=== PATIENT | male | born 2000 | race African-American/Black ===

== ENCOUNTER 2020-11-29 20:51 | Emergency (ER) | payer OTHER, SELFPAY ==
[2020-11-29 20:58] VITALS: BP 109/61; PULSE 69; RESP 16; TEMP 36.8; O2SAT 95; BMI 19.8
[2020-11-29] MEDS: Lidocaine 4 % Cream KIT 1 APPL TOPICAL (22:38)
[2020-11-29] MEDS: Lidocaine HCl 1 % MPF 5 ML VIAL SUBCUT (22:38)
--- NOTE | 2020-11-29 23:04 | ED_ITS ---
HPI - Ear Problem General Chief complaint: Ear Problems Stated complaint: ear ache Time Seen by Provider: 11/29/20 21:32 Source: patient Mode of arrival: ambulatory History of Present Illness HPI Narrative: 20-year-old male presenting to the ED complaining of left ear lobe pain and swelling x a few days. Reports took earrings out 3 days ago and then swelling started. Denies trauma, injury, drainage from area, fever, chills, hearing loss MD Complaint: ear pain Related Data Previous Rx's Medication Instructions Recorded cephalexin 500 mg capsule 500 mg PO QID 7 Days #28 cap 11/29/20 doxycycline hyclate 100 mg tablet 100 mg PO BID 7 Days #14 tab 11/29/20 Allergies Allergy/AdvReac Type Severity Reaction Status Date / Time No Known Allergies Allergy Unverified 10/28/19 17:35 [No Known Allergies*] Review of Systems Review of Systems: Constitutional: No Fever, No Chills ENT/Mouth: + Ear Pain, No Nasal Congestion, No Sinus Pain, No Hoarseness, No sore throat, No Rhinorrhea, No Swallowing Difficulty Cardiovascular: No Chest Pain, No SOB Respiratory: No Cough Gastrointestinal: No Nausea, No Vomiting, No Abdominal pain Musculoskeletal: No joint pain, No Myalgias Skin: + Skin Lesions, No rash Neuro: No Weakness, No Numbness, No Paresthesias Yes all other systems are reviewed and are negative [facility] Past Medical History Attestation statement: The following information was validated with the patient. Medical History (Updated 11/29/20 @ 23:05 by ROCHELLE Lopez) No known health problems Social History Social History Advance Directives: No Advance Directives Information Provided: No Physical Exam Vital Signs: Vital Signs: Last Vital Signs Temp 98.3 F 11/29/20 20:58 Pulse 69 11/29/20 20:58 Resp 16 11/29/20 20:58 BP 109/61 11/29/20 20:58 Pulse Ox 95 11/29/20 20:58 Body Mass Index 19.8 Const: General: cooperative, healthy appearing, no acute distress and well developed Orientation/consciousness: patient oriented x3 Limitations: no limitations HENMT: Other: Left ear lobe with notable swelling and erythema, tender to palpation, posterior ascpect with noted fluctuance and slight induration Head: Yes normal to inspection Ears: hearing grossly normal bilaterally, mastoids normal and unable to visualize TM bilaterally (Secondary to cerumen impaction) General nose exam: Normal external nose present Face and sinus: Yes normal facial exam Mouth: Normal oral and palatal mucosa present Throat: Yes posterior oropharynx normal Eyes: General: appearance normal, both eyes and all related structures EOM: EOMs intact bilaterally Neck: Neck: Yes normal visual inspection, Yes no lymphadenopathy and Yes no meningeal signs Resp: Effort & Inspection: normal respiratory effort and no respiratory distress Cardio: Rate: regular rate Heart sounds: S1 normal heart sound present and S2 normal heart sound present Skin: Rashes: no rashes Wounds: no wounds Neuro: General: patient oriented x3 and no meningeal signs Gait exam (Neuro): Normal gait present Extrem: General: Yes normal to inspection Procedures Abscess I/D Site: other (Left earlobe) Side (if applicable): left Local Anesthetic: lidocaine 1% Amount of anesthesia used (mL): 3 Technique: incised with blade Amount of fluid expressed (mL): 15 Sent for culture/gram staining?: No Irrigation: No Ear Wax Removal Both Ears: Cerumenolytic Used: Cerumenex and 5-10% Sodium Bicarb solution Results: Re-examined: cerumen removed completely (On the right) and some cerumen remains (On the left) TM Examination: TM(s) intact, normal appearance (on the right) and other (Left TM not visible secondary to continued impaction) Ear Canal Exam: bleeding Noted (L canal) Patient Tolerated Procedure: well Complications: no problems Technique: ear canal irrigated and ear canal curetted MDM - Ear MDM Narrative Medical decision making narrative: 20-year-old male presenting to the ED complaining of left ear lobe pain and swelling x a few days. On exam VS, NAD/nontoxic-appearing, left earlobe with noted abscess, and bilateral cerumen impaction. Cerumen successfully disimpacted from right ear lobe, partially successful to left, still unable to visualize TM. Abscess I&D with copious amounts of pus drainage, and cyst pocket expressed Plan to DC home with doxy/Keflex and discussed peroxide/saline soaks at home to soften ear wax Medical Records Attestation: I reviewed the patient's medical records. Lab Data Attestation: I reviewed the patient's lab results. Discharge Plan Discharge Clinical Impression: Abscess of left earlobe, Bilateral impacted cerumen Patient Disposition: Home, Self-Care Instructions: Abscess (ED), Abscess Follow-up (ED) Additional Instructions: The abscess on your ear lobe was drain today in the ED, doxycycline and Keflex for antibiotics, please take as prescribed Your ears were also mostly disimpacted today in the ED It is important for you to practice 1-1 ratio of saline and peroxide at home to help soften the earwax in your ears Please follow-up with her primary care doctor, and ENT as needed If your symptoms persist, recur, he develops fever, continued drainage from the ear, hearing loss please return to the ED Prescriptions: New cephalexin 500 mg capsule 500 mg PO QID 7 Days Qty: 28 RF: 0 doxycycline hyclate 100 mg tablet 100 mg PO BID 7 Days Qty: 14 RF: 0 Referrals: Physician,None [Primary Care Provider] - 2 days
--- NOTE | 2020-11-29 23:25 | PC.NURSE ---
PT BILATERAL EARS CLEANED AND FLUSHED OUT AT BEDSIDE BY ROCHELLE BRANHAM. PT LEFT EAR LOBE ABSCESS CLEANED AND DRAIN COPPIOUS AMOUNTS OF PUSS REMOVED DSD APPLIED.
== END 2020-11-29 23:29 | disposition home or self-care (01) ==
PROVIDERS: Emergency Provider Internal Medicine
DX: H60.02 Abscess of left external ear (principal); H61.23 Impacted cerumen, bilateral
CPT/HCPCS: 10060; 69210; 99283; 99284

== ENCOUNTER 2022-05-04 07:54 | Emergency (ER) | payer OTHER, SELFPAY ==
--- NOTE | ~2022-05-04 | XR_ITS ---
EXAMINATION: XR HAND, RIGHT CLINICAL INFORMATION: Injury, pain COMPARISON: None available. TECHNIQUE: PA, lateral, and oblique views of the right hand. FINDINGS: The bones and soft tissues are normal. No fracture. Alignment is anatomic. Joint spaces are maintained. No erosions or soft tissue calcifications. There is deformity of the fifth distal metacarpal from old injury. XR/XR hand RT 2V IMPRESSION: 1. No acute fracture or dislocation. 2. Deformity distal fifth metacarpal from old injury.
[2022-05-04 08:22] VITALS: BP 113/74; PULSE 62; RESP 16; TEMP 36.5; O2SAT 98; BMI 19.8
--- NOTE | 2022-05-04 08:35 | ED_ITS ---
HPI - Extremity Problem General Chief complaint: Extremity Injury, Upper Stated complaint: hand inj Time Seen by Provider: 05/04/22 08:32 Source: patient and family Mode of arrival: ambulatory Limitations: no limitations History of Present Illness HPI Narrative: This is a 22-year-old male who is right-hand dominant who has no known medical problems he is up-to-date with immunizations who presents with complaints of right hand injury which occurred last night after punching a wall. Patient reports laceration of the hand. He denies any associated weakness, numbness or tingling of the extremity. Related Data Previous Rx's Medication Instructions Recorded cephalexin 500 mg capsule 500 mg PO QID 7 days #28 caps 11/29/20 doxycycline hyclate 100 mg tablet 100 mg PO BID 7 days #14 tabs 11/29/20 amoxicillin 875 mg-potassium 1 tab PO BID #14 tabs 05/04/22 clavulanate 125 mg tablet Allergies Allergy/AdvReac Type Severity Reaction Status Date / Time No Known Allergies Allergy Unverified 10/28/19 17:35 [No Known Allergies*] Review of Systems Review of Systems: Yes all other systems are reviewed and are negative Constitutional: Constitutional: Reports no additional constitutional complaints, Denies body ache(s), Denies chills, Denies fever(s), Denies headache(s) and Denies weakness Eyes: Eyes: Reports no additional eye complaints and Denies change in vision ENT: Reports system reviewed and no additional complaints, except as documented, Denies dizziness, Denies headache(s), Denies nasal congestion, Denies nasal discharge and Denies neck pain Cardiovascular: Cardiovascular: Reports no additional cardiovascular complain ts, Denies chest pain, Denies leg edema and Denies dyspnea Respiratory: Respiratory: Reports no additional respiratory complaints, Denies cough and Denies dyspnea Gastrointestinal: Gastrointestinal: Reports no additional gastrointestinal complaints, Denies abdominal pain, Denies diarrhea, Denies nausea and Denies vomiting Genitourinary: Genitourinary: Denies urinary incontinence Musculoskeletal: Musculoskeletal: Reports no additional musculoskeletal complaints, Denies back pain, Reports arthralgias, Reports joint swelling, Denies neck pain, Denies numbness and Denies tingling Integumentary/Breasts: Skin/Breast: Reports system reviewed and no additional complaints, except as docu, Denies rash and Reports wounds Neurologic: Reports system reviewed and no additional complaints, except as documented, Denies Abnormal speech present, Denies dizziness, Denies headache(s), Denies numbness, Denies tingling and Denies weakness PMFSH Past Medical History Attestation statement: The following information was validated with the patient. Source: old records reviewed and nursing notes reviewed Medical History No known health problems Social History Social History Alcohol intake: current Smoked in Last 30 Days: Yes Use of substances other than those prescribed or required for medical reasons: No Advance Directives: No Physical Exam Vital Signs: Vital Signs: Last Vital Signs Temp 97.7 F 05/04/22 08:22 Pulse 62 05/04/22 08:22 Resp 16 05/04/22 08:22 BP 113/74 05/04/22 08:22 Pulse Ox 98 05/04/22 08:22 O2 Del Method Room Air 05/04/22 08:22 BMI result Body Mass Index 19.8 Const: General: cooperative, healthy appearing, comfortable and no acute distress Orientation/consciousness: patient oriented x3 Limitations: no limitations HEENT: Head: Yes normal to inspection Ears: hearing grossly normal bilaterally General nose exam: Normal external nose present Face and sinus: Yes normal facial exam Mouth: Normal oral and palatal mucosa present Throat: Yes posterior oropharynx normal Eyes: General: appearance normal, both eyes and all related structures Pupils: Equal, round and reactive pupils present Neck: Neck: Yes normal visual inspection Chest: Chest palpation & inspection: normal inspection of the chest Resp: Effort & Inspection: normal respiratory effort Auscultation: clear to auscultation bilaterally Cardio: Rate: regular rate Rhythm: regular rhythm Peripheral pulses: Peripheral pulses 2+ throughout GI: Inspection: Yes normal to inspection Palpation (GI): Soft to palpation and nontender Auscultation: normal bowel sounds Back/Spine/Pelvis: Thoracic/Lumbar Spine: thoracic and lumbar spine normal to inspection Skin: General skin exam: no rashes or lesions noted Neuro: General: patient oriented x3, no focal motor deficits and normal sensation to monofilament Cranial nerves: Yes Equal, round and reactive pupils present Cognition (Neuro): normal cognition Speech: No Abnormal speech present Gait exam (Neuro): Normal gait present Motor exam (neuro): 5/5 motor strength present throughout Extrem: General: Yes normal to inspection Hand/finger images: 1. Laceration present, tenderness on exam Patient is able to flex and extend the hand with no difficulty. He is able to move the 4th digit with both flexion and extension with no difficulty. Sensation is intact distally. Course Course Course Narrative: X-ray shows no fracture in the hand. See procedure note for wound repair. After the wound was cleansed there was some slight erythema/swelling around the site. Patient denies fight bite and is adamant he punched a object and not a person. Will give pptx antibiotics. Reviewed worrisome signs/symptoms with patient and when to seek additional care. Comfortable with discharge home. Medical Decision Making Medical Decision Making MDM Narrative: This is a 22-year-old male who is right-hand dominant who presents with injury and laceration to the right hand after punching a wall last night. Laceration on exam Will obtain x-ray Differential Diagnosis Differential Diagnoses: The differential diagnosis associated with the presentation includes Contusion, fracture, laceration Less likely tendon or vascular injury Independent Interpretation I performed an independent interpretation of an: Plain X-Ray Interpretation: I independently reviewed the x-ray and agree with radiologist's report Radiology Impression Discussion of test interpretation with radiology: I have reviewed the radiologist's reading. Procedures Laceration Laceration 1: Site: hand Side (If applicable): right Size (cm): 2 Description: linear Depth: simple, single layer Local Anesthetic: lidocaine 1% Amount of anesthesia used (mL): 2 Pre-repair: wound explored Skin layer closed with: vicryl Size (cm): 5-0 Number of sutures: 3 Technique: simple, interrupted Discharge Plan Discharge Clinical Impression: Contusion of hand, right, Laceration of hand Patient Disposition: Home, Self-Care Instructions: Laceration (DC), Contusion in Adults (ED) Additional Instructions: Sutures out in 7-10 days You may wash the area with soap and water daily. No soaking in water. Take Motrin or Tylenol as needed. Return for any increasing redness, swelling, fever, drainage from the wound Prescriptions: New amoxicillin-pot clavulanate 875-125 mg tablet 1 tab PO BID Qty: 14 0RF No Action cephalexin 500 mg capsule 500 mg PO QID 7 Days Qty: 28 0RF doxycycline hyclate 100 mg tablet 100 mg PO BID 7 Days Qty: 14 0RF Referrals: Physician,Unknown J [Primary Care Provider] -
[2022-05-04 10:58] VITALS: BP 113/79; PULSE 63; RESP 18; TEMP 36.7; O2SAT 96
== END 2022-05-04 11:01 | disposition home or self-care (01) ==
PROVIDERS: Emergency Provider Emergency Medicine
DX: S61.411A Laceration without foreign body of right hand, initial encounter (principal); S60.221A Contusion of right hand, initial encounter; W22.09XA Striking against other stationary object, initial encounter; Y93.89 Activity, other specified; Y92.019 Unspecified place in single-family (private) house as the place of occurrence of the external cause; Y99.9 Unspecified external cause status
CPT/HCPCS: 12001; 73120; 99284

== ENCOUNTER 2022-05-08 14:58 | Inpatient (IN) | payer OTHER, SELFPAY ==
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
[2022-05-08 15:06] VITALS: BP 121/83; PULSE 60; RESP 19; TEMP 37; O2SAT 100; BMI 19.8
[2022-05-08 15:30] LABS: MANUAL DIFF FLAG NO
[2022-05-08 15:32] LABS: Basophils Percent Auto 0.2 % (0-2); Eosinophils Absolute Auto 0.1 X10*3/uL (0.0-0.4); Eosinophils Percent Auto 0.5 % (0-4); Hematocrit 37.9 % (42.0-52.0); Imm Gran Abs Auto 0.03 X10*3/uL (0.00-0.03); Imm Gran Pct Auto 0.2 % (0.0-0.4); Lymphocytes Percent Auto 13.5 % (20-40); Mean Corpuscular HGB Conc 36.9 g/dl (31.0-36.0); Mean Corpuscular Hemoglobin 28.3 pg (27.0-33.0); Mean Corpuscular Volume 76.7 fL (80.0-98.0); Mean Platelet Volume 9.6 fL (9.4-12.4); Monocytes Absolute Auto 0.9 X10*3/uL (0.1-1.2); Monocytes Percent Auto 5.7 % (2-11); Neutrophils Percent Auto 79.9 % (45-73); Platelet Count 227 X10*3/uL (160-400); Red Blood Count 4.94 X10*6/uL (4.60-5.80)
[2022-05-08] MEDS: Ibuprofen 600 MG TABLET PO (15:37)
[2022-05-08 15:50] LABS: Lactic Acid 0.8 mmol/L (0.5-2.0)
[2022-05-08 15:53] LABS: Anion Gap 13 (12-20); Blood Urea Nitrogen 9 mg/dL (9-16); C Reactive Protein 1.65 mg/dL (< or = 0.50); Carbon Dioxide 24 mmol/L (22-29); Chloride 109 mmol/L (96-108); Creatinine Clr Calc Pharmacy 116.4; Estimated Glomerular Filt Rate > 60; Glucose Random 93 mg/dL (60-115); Potassium 3.9 mmol/L (3.3-5.1); Sodium 142 mmol/L (135-145)
[2022-05-08 16:46] LABS: Erythrocyte Sedimentation Rate 9 MM/HR (0-15)
[2022-05-08] MEDS: Acetaminophen 325 MG TABLET 975 MG PO (16:50)
[2022-05-08] MEDS: oxyCODONE HCl Immed Release 5 MG TABLET PO (16:50)
[2022-05-08 17:28] LABS: COVID-19 Test Negative (Negative); IDNOW Serial# 08D9AD1C
[2022-05-08] MEDS: Piperacillin Sodium/Tazobactam 3.375 GM in 0.9 % Sodium Chloride 50 ML IV (17:34)
--- NOTE | 2022-05-08 17:42 | PC.NURSE ---
20G iv placed in rigth AC, infusing zosyn as ordered- pt sts he is comfortable at this time, call flower within reach WCTM
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
--- NOTE | 2022-05-08 21:54 | MHC.CM.PN ---
CM met with admitted patient with bed assignment pending. A&Ox4. Lives with grandmother. Unemployed. No DME/services. PCP at [facility] in [place]. Cannot remember name of provider. No Covid vaccinations. HCP reviewed, completed and signed. Copies given. Uploaded into [facility]. Unable to upload to [facility] (IT problem with fax attach). HCP/mother Dulce Sung ([phone]). D/C plan: Home without services. Pt to arrange transport. CM to follow for any discharge needs.
--- NOTE | 2022-05-08 22:48 | PC.NURSE ---
Pt. sitting up in bed on his phone, no distress noted. Will continue to monitor.
[2022-05-09] MEDS: Piperacillin Sodium/Tazobactam 3.375 GM in 0.9 % Sodium Chloride 50 ML IV ×4 (00:21→18:36)
[2022-05-09] MEDS: 0.9 % Sodium Chloride Flush 3 ML SYRINGE IVFLUSH ×3 (00:22→16:20)
[2022-05-09 01:11] VITALS: BP 110/68; PULSE 61; RESP 16; TEMP 37.1; O2SAT 98
--- NOTE | 2022-05-09 01:12 | MHC.EDTECH ---
pt refused to change into hospital attire ,judie feng is aware .
--- NOTE | 2022-05-09 03:14 | PC.NURSE ---
Pt. asleep in bed, respirations even and unlabored. No distress noted. Will continue to monitor.
[2022-05-09 04:00] VITALS: BP 122/74; PULSE 72; RESP 16; TEMP 36.8; O2SAT 98
[2022-05-09 04:43] VITALS: BP 119/84; PULSE 74; RESP 16; TEMP 35.9; O2SAT 100
[2022-05-09 05:02] VITALS: BMI 19.3
[2022-05-09 06:30] LABS: Hematocrit 37.4 % (42.0-52.0); Hemoglobin 13.6 g/dl (14.0-18.0); Mean Corpuscular HGB Conc 36.4 g/dl (31.0-36.0); Mean Corpuscular Hemoglobin 27.8 pg (27.0-33.0); Mean Corpuscular Volume 76.5 fL (80.0-98.0); Mean Platelet Volume 9.8 fL (9.4-12.4); Platelet Count 223 X10*3/uL (160-400); Red Blood Count 4.89 X10*6/uL (4.60-5.80); White Blood Count 11.7 X10*3/uL (4.8-10.8)
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
[2022-05-09 08:02] VITALS: BP 123/64; PULSE 58; RESP 18; TEMP 36.6; O2SAT 98
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
[2022-05-09 15:30] VITALS: BP 128/71; PULSE 58; RESP 16; TEMP 37.3; O2SAT 98
[2022-05-09 19:42] VITALS: BP 134/80; PULSE 67; RESP 17; TEMP 36.6; O2SAT 99
[2022-05-09] MEDS: Acetaminophen 325 MG TABLET 650 MG PO (21:00)
[2022-05-10] MEDS: 0.9 % Sodium Chloride Flush 3 ML SYRINGE IVFLUSH (00:46)
[2022-05-10] MEDS: Piperacillin Sodium/Tazobactam 3.375 GM in 0.9 % Sodium Chloride 50 ML IV ×2 (00:46→05:51)
[2022-05-10 03:54] VITALS: BP 106/68; PULSE 65; RESP 18; TEMP 36.6; O2SAT 99
[2022-05-10 07:36] VITALS: BP 120/65; PULSE 53; RESP 17; TEMP 36.5; O2SAT 98
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
--- NOTE | 2022-05-10 09:55 | MHC.CM.PN ---
PT TO DC HOME TODAY WITH NO SERVICES FAMILY TO TRANSPORT
[2022-05-10] MEDS: metroNIDAZOLE 500 MG TABLET PO (10:11)
[2022-05-10] MEDS: levoFLOXacin 750 MG TABLET PO (10:11)
[2022-05-10 11:17] LABS: HIV AB/AG Nonreactive (Nonreactive); HIV Num 1 0.06 S/CO (0.00-0.99); ~HepC Num1 0.13 S/CO (0.00-0.79); ~Hepatitis C Antibody Nonreactive (Nonreactive)
== END 2022-05-10 10:39 | disposition home or self-care (01) | DRG 721 ==
LOC: HO.ED 18:28 → HO.EDOVER 19:05 → HO.S3 05-09 03:29
PROVIDERS: Internal Medicine; Nurse Practitioner Family; Physician Assistant; Admitting Provider Internal Medicine; Emergency Provider Emergency Medicine Emergency Medical Services; Visit Provider Internal Medicine
DX: T81.41XA Infection following a procedure, superficial incisional surgical site, initial encounter (principal); L03.113 Cellulitis of right upper limb; Y84.8 Other medical procedures as the cause of abnormal reaction of the patient, or of later complication, without mention of misadventure at the time of the procedure; Z20.822 Contact with and (suspected) exposure to COVID-19
CPT/HCPCS: 36415; 80048; 83605; 85025; 85027; 85652; 86140; 86803; 87040; 87070; 87077; 87147; 87185; 87205; 87389; 87635; 99221; 99285; J2543

== ENCOUNTER 2023-11-26 22:20 | Emergency (ER) | payer OTHER, SELFPAY ==
[2023-11-26 22:22] VITALS: BP 123/87; PULSE 58; RESP 19; TEMP 36.6; O2SAT 98; BMI 19.8
[2023-11-26 22:37] LABS: MANUAL DIFF FLAG NO
[2023-11-26 22:39] LABS: Hematocrit 43.3 % (42.0-52.0); Hemoglobin 15.9 g/dl (14.0-18.0); Imm Gran Pct Auto 0.3 % (0.0-0.4); Mean Corpuscular HGB Conc 36.7 g/dl (31.0-36.0); Mean Corpuscular Hemoglobin 28.8 pg (27.0-33.0); Mean Corpuscular Volume 78.3 fL (80.0-98.0); Mean Platelet Volume 9.6 fL (9.4-12.4); Neutrophils Percent Auto 69.6 % (45-73); Platelet Count 211 X10*3/uL (160-400); Red Blood Count 5.53 X10*6/uL (4.60-5.80); White Blood Count 12.7 X10*3/uL (4.8-10.8)
[2023-11-26 22:40] LABS: Basophils Percent Auto 0.3 % (0-2); Eosinophils Absolute Auto 0.1 X10*3/uL (0.0-0.4); Eosinophils Percent Auto 0.6 % (0-4); Imm Gran Abs Auto 0.04 X10*3/uL (0.00-0.03); Lymphocytes Percent Auto 23.4 % (20-40); Monocytes Absolute Auto 0.7 X10*3/uL (0.1-1.2); Monocytes Percent Auto 5.8 % (2-11); Neutrophils Absolute Auto 8.8 x10*3/uL (2.0-8.3)
[2023-11-26 22:49] LABS: Anion Gap 13 (12-20); Blood Urea Nitrogen 9 mg/dL (9-16); Calcium 9.5 mg/dL (8.4-10.2); Carbon Dioxide 26 mmol/L (22-29); Chloride 108 mmol/L (96-108); Creatinine Clr Calc Pharmacy 100.8; Estimated Glomerular Filt Rate > 60; Glucose Random 85 mg/dL (60-115); Potassium 4.2 mmol/L (3.3-5.1); Sodium 143 mmol/L (135-145)
== END 2023-11-27 02:34 | disposition left against medical advice (07) ==
PROVIDERS: Emergency Provider Emergency Medicine; PCP Internal Medicine
DX: R11.2 Nausea with vomiting, unspecified (principal)
CPT/HCPCS: 36415; 80048; 85025; 99281

== ENCOUNTER 2024-05-07 17:48 | Emergency (ER) | payer OTHER, SELFPAY ==
--- NOTE | ~2024-05-07 | XR_ITS ---
CLINICAL HISTORY: knee pain. fall. 8 view bilateral knee Comparison: None Findings: Bones intact. No dislocations. No significant loss of joint space, osteophytes, or erosions. No joint effusion. No radiopaque foreign body. IMPRESSION: 1. No acute findings. This document has been electronically signed by: Alexi Vital MD, PHD on 05/07/2024 19:36:21
--- NOTE | ~2024-05-07 | XR_ITS ---
CLINICAL HISTORY: shoulder pain 3 view right shoulder Comparison: None Findings: Bones intact. No dislocations. No significant arthritic change. No erosions. No radiopaque foreign body. IMPRESSION: 1. No acute findings This document has been electronically signed by: Alexi Vital MD, PHD on 05/07/2024 19:04:59
[2024-05-07 17:52] VITALS: BP 114/82; PULSE 66; O2SAT 98
[2024-05-07 17:58] VITALS: BP 118/76; PULSE 59; RESP 16; TEMP 36.9; O2SAT 99; BMI 19.0
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
[2024-05-07] MEDS: Ibuprofen 800 MG TABLET PO (18:50)
--- NOTE | 2024-05-07 18:58 | PC.NURSE ---
patient a&ox3, c/o 06/19 rt shoulder pain, pt medicated for pain, awaiting results of xray, PD at bedside, plan of care ongoing
[2024-05-07 20:21] VITALS: BP 104/50; PULSE 51; RESP 16; TEMP 36.7; O2SAT 99
[2024-05-07 20:25] VITALS: BP 104/50; PULSE 51; RESP 16; TEMP 36.7; O2SAT 99
== END 2024-05-07 20:25 | disposition home or self-care (01) ==
PROVIDERS: Emergency Provider Emergency Medicine
DX: S40.011A Contusion of right shoulder, initial encounter (principal); S80.212A Abrasion, left knee, initial encounter; S80.211A Abrasion, right knee, initial encounter; Y35.893A Legal intervention involving other specified means, suspect injured, initial encounter; M25.511 Pain in right shoulder; Y93.9 Activity, unspecified; Y92.410 Unspecified street and highway as the place of occurrence of the external cause; Y99.9 Unspecified external cause status
CPT/HCPCS: 73030; 73564; 99283; 99284

== ENCOUNTER → 2024-05-07 18:06 | Outpatient (BNV) | payer OTHER, SELFPAY | PROVIDERS: Emergency Provider Emergency Medicine; Visit Provider General Practice | DX: M25.561 Pain in right knee (principal); M25.562 Pain in left knee; M25.511 Pain in right shoulder | CPT/HCPCS: 73030; 73564 ==